=== PATIENT | female | born 1965 | race Asian ===

== ENCOUNTER 2017-02-22 11:56 | Emergency (ER) | payer OTHER ==
[~2017-02-22] VITALS: Ht 162.6 cm; Wt 54.4 kg
[2017-02-22 12:05] VITALS: BP_SYST 115
[2017-02-22 12:55] LABS: BILIRUBIN,URINE NEGATIVE (NEGATIVE); BLOOD, URINE NEGATIVE (NEGATIVE); CLARITY/URINE CLEAR (CLEAR); COLOR,URINE YELLOW (YELLOW); GLUCOSE,URINE NEGATIVE (NEGATIVE); KETONES,URINE 2+ (NEGATIVE); LEUKOCYTE ESTERASE ,URINE NEGATIVE (NEGATIVE); NITRITE, URINE NEGATIVE (NEGATIVE); PH,URINE 7.5 (5.0-8.0); PROTEIN URINE NEGATIVE (NEGATIVE)
[2017-02-22 13:02] LABS: BASOPHILS % (AUTO) 0.2 % (0.0-2.0); EOSINOPHILS # (AUTO) 0.1 K/uL (0.0-0.4); HEMATOCRIT 35.1 % (36-48); HEMOGLOBIN 12.1 g/dL (12.0-16.0); LYMPHOCYTES # (AUTO) 0.8 K/uL (1.0-5.5); LYMPHOCYTES % (AUTO) 12.5 % (20.5-51.5); MEAN CORPUSCULAR HEMOGLOBIN 31 pg (27-31); MEAN CORPUSCULAR HGB CONC 35 % (32-36); MEAN CORPUSCULAR VOLUME 91 fL (79.0-98.0); MONOCYTES # (AUTO) 0.3 K/uL (0.0-1.0); MONOCYTES % (AUTO) 4.5 % (1.7-9.3); NEUTROPHILS % (AUTO) 81.8 % (40.0-70.0); PLATELET COUNT (AUTO) 185 K/uL (130-430); RED BLOOD CELL COUNT(AUTO) 3.86 MIL/uL (4.2-6.2); RED CELL DISTRIBUTION WIDTH 10.6 % (9.0-15.0); WHITE BLOOD COUNT (AUTO) 6.2 K/uL (4.8-10.8)
[2017-02-22 13:14] LABS: CALCIUM 9.5 mg/dL (8.4-11.0); CREATININE 0.73 mg/dL (0.55-1.30); POTASSIUM 3.7 mmol/L (3.5-5.1)
[2017-02-22 13:19] LABS: ALBUMIN 3.6 g/dL (3.4-4.8); TOTAL BILIRUBIN 1.4 mg/dL (0.0-1.0)
[2017-02-22] MEDS ORDERED: ACETAMINOPHEN 500 MG TABLET PO ONE (13:45)
[2017-02-22] MEDS ORDERED: LIDOCAINE 2%, 20 ML MDV INJ ONE (14:45)
[2017-02-22] MEDS ORDERED: NACL 0.9% 1,000 ML IV ONE (15:45)
[2017-02-22 16:05] LABS: CSF GLUCOSE 57 mg/dL (40-70)
[2017-02-22 16:06] LABS: CSF PROTEIN 28 mg/dL (15-45)
[2017-02-22 16:31] LABS: CSF APPEARANCE CLEAR (CLEAR); CSF COLOR COLORLESS (COLORLESS); CSF TUBE NUMBER 1
[2017-02-22 16:33] LABS: CSF RED BLOOD CELL COUNT #1 7 /uL (0-0)
[2017-02-22 16:34] LABS: CSF WHITE BLOOD CELL COUNT 2 /uL (0-5)
[2017-02-22 19:45] VITALS: BP_SYST 112
== END 2017-02-22 19:45 | disposition home or self-care (01) ==
LOC: SED 11:56
DX: B34.9 Viral infection, unspecified (principal)
CPT/HCPCS: 36415; 62270; 71010; 80053; 81003; 81025; 82947; 83605; 84157; 85025; 85048; 86710; 87040; 87070; 87205; 89051; 96360; 99285; J2001; J7030

== ENCOUNTER 2017-03-02 12:36 | Emergency (ER) | payer OTHER ==
[~2017-03-02] VITALS: Ht 162.6 cm; Wt 54.4 kg
[2017-03-02 12:51] VITALS: BP_SYST 118
[2017-03-02] MEDS ORDERED: HYDROcodone/ACETAMIN 10-325 MG TAB PO ONE (14:45)
[2017-03-02 15:40] VITALS: BP_SYST 127
== END 2017-03-02 15:40 | disposition home or self-care (01) ==
LOC: SED 12:36
DX: R51 Headache (principal); R50.9 Fever, unspecified
CPT/HCPCS: 70450-TC; 99284